=== PATIENT | female | born 1970 | race Caucasian/White ===

== ENCOUNTER → 2019-09-01 | Outpatient (CLI) | payer OTHER ==
[~2019-09-01] MED LIST: CYMBALTA30 MG PO; IBUPROFEN 200200 M1 PO; NORCO 5-325 TA1 EACH PO; PREDNISOLONE 5 M5 M1 PO; RELAFEN500 MG PO
== END ==
LOC: CAT 09:35
DX: Z13.6 Encounter for screening for cardiovascular disorders (principal); I25.10 Atherosclerotic heart disease of native coronary artery without angina pectoris; E78.00 Pure hypercholesterolemia, unspecified

== ENCOUNTER → 2020-01-06 | Outpatient (CLI) | payer OTHER | LOC: RAD 14:47 | PROVIDERS: ATTEND Nurse Practitioner | DX: Z12.31 Encounter for screening mammogram for malignant neoplasm of breast (principal); R07.89 Other chest pain ==

== ENCOUNTER → 2020-07-14 | Outpatient (CLI) | payer OTHER | LOC: RAD 12:51 | PROVIDERS: ATTEND Nurse Practitioner | DX: R07.89 Other chest pain (principal); M25.78 Osteophyte, vertebrae ==

== ENCOUNTER → 2020-08-03 | Outpatient (CLI) | payer OTHER | LOC: LAB 08:07 | PROVIDERS: ATTEND Internal Medicine Gastroenterology | DX: Z01.812 Encounter for preprocedural laboratory examination (principal); Z20.822 Contact with and (suspected) exposure to COVID-19 ==

== ENCOUNTER → 2020-08-08 | Outpatient (CLI) | payer OTHER ==
[~2020-08-08] VITALS: Ht 157.5 cm; Wt 63.5 kg
--- NOTE | 2020-08-10 14:04 | PATH ---
[facility] [address] [place] [address] PATHOLOGY RPT PROCEDURE Name: PAYTON TAYLOR Room #: REG [facility] Willis#: [id number] Admission: 08/08/20 Date of : 70 Discharge: Report #: [id number] Path Case #: [id number] [facility] Accession Number: [id number] . 01 Material submitted: . PART A: colon - CECUM COLON POLYP PART B: colon - ASCENDING COLON POLYP X3. Modifiers: ascending . 01 Clinical history: . ABDOMINAL PAIN . 02 Diagnosis: A. Polyp, at cecum colon, endoscopic biopsy: - Tubular adenoma. - Negative for high-grade dysplasia. . B. Polyp x3, at ascending colon, endoscopic biopsy: - One fragment showing tubular adenoma without high-grade dysplasia. - Remainder of fragments showing hyperplastic polyp without dysplasia. (IUV:ninoska; 08/10/2020) QMS 08/10/2020 1046 Local . 02 Electronically signed: . Alecia Hammond MD, Pathologist NPI- [id number] . 01 Gross description: . A. The specimen is received in formalin, labeled "Payton Mason, polyp at cecum". Received is a segment of pale fermin soft tissue measuring 0.4 cm in maximum dimensions. The specimen is submitted entirely in cassette A1. . B. The specimen is received in formalin, labeled "Payton Cameronon Marlon, polyp at ascending x3". Received are multiple segments of pale fermin soft tissue ranging in size from 0.2 to 0.6 cm in maximum dimensions. The specimen is submitted entirely in cassette B1. (CAA; 08/09/2020) QAC/QAC 08/09/2020 1119 Local . 02 Pathologist provided ICD-10: D12.0, D12.2, K63.5 . 02 CPT . 721868, [id number] Specimen Comment: A courtesy copy of this report has been sent to [phone] Specimen Comment: [id number] [place] [phone] PATHOLOGY RPT PROCEDURE Name: ALEXISLD PAYTON MASON Room #: REG LUDY Pedro#: [id number] Admission: 08/08/20 Date of : 70 Discharge: Report #: [id number] Path Case #: [id number] Specimen Comment: Report sent to / DR LAO Performed at: [address] [facility] [address], [place], [place] [id number] MD Sony West MD Phone: [phone] Performed at: [address] [id number] MD Alecia Hammond MD Phone: [phone]
== END | disposition home or self-care (01) ==
LOC: GI 06:40
PROVIDERS: ATTEND Internal Medicine Gastroenterology
DX: R10.84 Generalized abdominal pain (principal); D12.0 Benign neoplasm of cecum; D12.2 Benign neoplasm of ascending colon; K31.89 Other diseases of stomach and duodenum; K64.8 Other hemorrhoids; Z98.890 Other specified postprocedural states; Z79.899 Other long term (current) drug therapy
CPT/HCPCS: 62110; 62900

== ENCOUNTER → 2020-09-07 | Outpatient (CLI) | payer OTHER | LOC: CAT 12:50 | PROVIDERS: ATTEND Internal Medicine Gastroenterology | DX: K57.30 Diverticulosis of large intestine without perforation or abscess without bleeding (principal); I77.4 Celiac artery compression syndrome ==